=== PATIENT | male | born 1990 | race Caucasian/White ===

== ENCOUNTER 2021-11-01 17:12 | Emergency (ER) | payer BC ==
[~2021-11-01] VITALS: Ht 172.7 cm; Wt 83.9 kg
[2021-11-01 18:31] LABS: MEAN CORPUSCULAR HEMOGLOBIN 30.9 uug (23.8-33.4); MEAN CORPUSCULAR VOLUME 90.8 fL (73.0-96.2); PLATELET COUNT (AUTO) 206 K/uL (152-348)
[2021-11-01 18:36] LABS: CREATININE 0.9 mg/dL (0.6-1.3); POTASSIUM 3.9 mmol/L (3.5-5.1)
[2021-11-01 18:42] LABS: BILIRUBIN,DIRECT 0.1 mg/dL (0.0-0.2); BILIRUBIN,TOTAL 0.5 mg/dL (0.2-1.0); TOTAL PROTEIN, SERUM 8.4 g/dL (6.4-8.2)
--- NOTE | 2021-11-01 18:48 | NUR ---
Pending MD evaluation,
[2021-11-01 19:23] LABS: *OCCULT BLOOD STOOL NEGATIVE (NEGATIVE)
[2021-11-01] MEDS ORDERED: IV NORMAL SALINE 250 ML IV ONE (19:37)
[2021-11-01] MEDS ORDERED: SWABABLE VALVE TRANSFER SET EA MC ONE (19:37)
[2021-11-01] MEDS ORDERED: IOHEXOL 300MG/ML 100 ML INFUS..BTL ONE (19:37)
--- NOTE | 2021-11-01 22:25 | NUR ---
Patient discharged to home in stable condition. Written and verbal after care instructions given. Patient verbalizes understanding of instructions. Stressed follow up or return to ER for worsening s/s.
[2021-11-01 22:28] VITALS: BP 128/88
== END 2021-11-01 22:28 | disposition home or self-care (01) ==
LOC: ER 17:19
DX: K62.5 Hemorrhage of anus and rectum (principal); R10.30 Lower abdominal pain, unspecified
CPT/HCPCS: 36415; 74177; 80048; 80076; 82270; 83690; 85025; 99285; Q9967; A4663; J7050